=== PATIENT | female | born 1955 | race Caucasian/White ===

== ENCOUNTER 2019-10-05 18:51 | Emergency (ER) | payer MEDICARE ==
[~2019-10-05] VITALS: Ht 175.3 cm; Wt 106.8 kg
[2019-10-05 19:26] VITALS: BP 152/85
[2019-10-05] MEDS ORDERED: HYDR-4383 PO (21:54)
--- NOTE | 2019-10-05 23:32 | NUR ---
carol newby checked splint
== END 2019-10-05 23:25 | disposition home or self-care (01) ==
LOC: ER 18:51
DX: S52.122A Displaced fracture of head of left radius, initial encounter for closed fracture (principal); Z88.1 Allergy status to other antibiotic agents; Z88.8 Allergy status to other drugs, medicaments and biological substances; Z79.899 Other long term (current) drug therapy; W18.39XA Other fall on same level, initial encounter; Y93.89 Activity, other specified; Y92.89 Other specified places as the place of occurrence of the external cause; Y99.8 Other external cause status
CPT/HCPCS: 29105; 29515; 73080; 99283

== ENCOUNTER 2020-02-28 14:45 | Emergency (ER) | payer MEDICARE ==
[~2020-02-28] VITALS: Ht 172.7 cm; Wt 105.9 kg
[~2020-02-28 14:45] MED LIST: HYDR-4383 PO
[2020-02-28 15:04] VITALS: BP 170/95
--- NOTE | 2020-02-28 15:32 | NUR ---
PT C/O LOWER BACK PAIN RADIATING TO LEFT HIP X3 DAYS, LITTLE RELIEF WITH VALIUM, FLEXERIL AND TYLENOL PM TAKEN (HAS PRESCRIPTION FOR CHRONIC BACK PAIN), AMB WITH SLOW STEADY GAIT, WAITING TO BE EVALUATED BY PROVIDER
[2020-02-28] MEDS ORDERED: ketorolac trometh inj. 60 MG/2 ML VIAL IM ONE (15:55)
[2020-02-28] MEDS ORDERED: HYDROcodone/acetaminophen 5mg/325mg tablet PO ONE (15:55)
== END 2020-02-28 16:22 | disposition home or self-care (01) ==
LOC: ER 14:45
DX: M54.5 Low back pain (principal); G89.29 Other chronic pain; Z88.5 Allergy status to narcotic agent; Z88.8 Allergy status to other drugs, medicaments and biological substances; Z79.899 Other long term (current) drug therapy
CPT/HCPCS: 96372; 99283; J1885

== ENCOUNTER 2020-04-08 18:47 | Emergency (ER) | payer MEDICARE ==
[~2020-04-08] VITALS: Ht 175.3 cm; Wt 105.9 kg
[2020-04-08 18:57] VITALS: BP 96/78
[2020-04-08] MEDS ORDERED: orphenadrine citrate 60mg/2ml inj. IM ONE (19:50)
[2020-04-08] MEDS ORDERED: ketorolac tromethamine 15mg/ml inj. IM ONE (19:50)
[2020-04-08] MEDS ORDERED: ORPH100T2 PO (19:53)
[2020-04-08] MEDS ORDERED: IBUP-1984 PO (19:53)
[2020-04-08] MEDS ORDERED: traMADol 50MG tablet PO ONE (20:45)
--- NOTE | 2020-04-08 20:52 | NUR ---
Pt complained that medications administered has not helped. Consulted PA, new medication order for tramadol obtained. When administered, pt exclaimed "only one?". Pt able to get up off gurney unassisted and without apparent difficulty when discharged.
== END 2020-04-08 20:55 | disposition home or self-care (01) ==
LOC: ER 18:47
DX: M54.42 Lumbago with sciatica, left side (principal); G89.29 Other chronic pain; Z88.1 Allergy status to other antibiotic agents; Z88.5 Allergy status to narcotic agent; Z88.8 Allergy status to other drugs, medicaments and biological substances; Z79.899 Other long term (current) drug therapy
CPT/HCPCS: 96372; 99284; J1885; J2360

== ENCOUNTER 2020-04-12 18:25 | Emergency (ER) | payer MEDICARE ==
[~2020-04-12] VITALS: Ht 175.3 cm; Wt 100.0 kg
[~2020-04-12 18:25] MED LIST changes: +IBUP-1984 PO; +ORPH100T2 PO
[2020-04-12 18:27] VITALS: BP 115/78
[2020-04-12] MEDS ORDERED: orphenadrine citrate 60mg/2ml inj. IM ONE (19:30)
[2020-04-12] MEDS ORDERED: gabapentin 300mg capsule PO ONE (19:30)
[2020-04-12] MEDS ORDERED: GABA-530 PO (20:16)
--- NOTE | 2020-04-12 20:50 | NUR ---
CALLED SON SEVERAL TIME DIDN'T ANSWER AND LFT MSG ON [phone],PT BROTHER CALLED VIPUL ON [phone] STATED THAT HE WILL BOTTOM CAGER THE PT FROM [facility].
== END 2020-04-12 20:50 | disposition home or self-care (01) ==
LOC: ER 18:26
DX: M54.32 Sciatica, left side (principal); R20.0 Anesthesia of skin; Z88.0 Allergy status to penicillin; Z79.899 Other long term (current) drug therapy
CPT/HCPCS: 72131; 96372; 99284; J2360

== ENCOUNTER 2024-07-28 11:39 | Emergency (ER) | payer MEDICARE, OTHER ==
[~2024-07-28] VITALS: Ht 172.7 cm; Wt 81.8 kg
[~2024-07-28 11:39] MED LIST changes: +GABA-530 PO; -IBUP-1984 PO; -ORPH100T2 PO; +ORPH100T4 PO
[2024-07-28 11:56] VITALS: TEMP 97.8
[2024-07-28 13:00] LABS: BASOPHILS % (AUTO) 0.7 % (0-1); EOSINOPHILS # (AUTO) 0.2 X10'3 (0-0.9); EOSINOPHILS % (AUTO) 3.7 % (0-6); HEMATOCRIT 34.7 % (35.0-45.0); HEMOGLOBIN 11.5 g/dl (12.0-16.0); LYMPHOCYTES # (AUTO) 0.2 X10'3 (1.1-4.8); LYMPHOCYTES % (AUTO) 5.4 % (21-51); MEAN CORPUSCULAR HEMOGLOBIN 30.2 PG (27.0-31.0); MEAN CORPUSCULAR HGB CONC 33.2 g/dL (33.0-36.5); MEAN CORPUSCULAR VOLUME 90.9 FL (78-98); MEAN PLATELET VOLUME 6.5 FL (7.4-10.4); MONOCYTES # (AUTO) 0.3 X10'3 (0-0.9); NEUTROPHILS # (AUTO) 3.4 X10'3 (1.8-7.7); NEUTROPHILS % (AUTO) 82.2 % (42-75); PLATELET COUNT 257 X10'3 (140-440); RED BLOOD COUNT 3.81 X10'6 (4.20-5.60); RED CELL DISTRIBUTION WIDTH 14.7 % (11.5-14.5); WHITE BLOOD COUNT 4.1 X10'3 (4.5-11.0)
[2024-07-28] MEDS: normal saline 1000ml 1,000 ML IV ONE (13:06)
[2024-07-28 13:12] LABS: ANION GAP 8 (8-16); BLOOD UREA NITROGEN 15 MG/DL (7-18); BUN/CREATININE RATIO 15.3 (10.0-20.0); CHLORIDE 104 MMOL/L (99-107); CREATININE 0.98 MG/DL (0.40-0.90); GLUCOSE 128 MG/DL (70-104); SODIUM 138 MMOL/L (135-145); TOTAL CARBON DIOXIDE 26.4 MMOL/L (24-32); eCRCL 55 ML/MIN
[2024-07-28 13:13] LABS: ALANINE AMINOTRANSFERASE 17 U/L (12-78); ALBUMIN 2.9 G/DL (3.4-5.0); ALBUMIN/GLOBULIN RATIO 0.8 (1.1-1.5); ALKALINE PHOSPHATASE 134 IU/L (46-116); ASPARTATE AMINO TRANSFERASE 18 U/L (10-37); BILIRUBIN,TOTAL 0.4 MG/DL (0.1-1.0); CALCIUM 8.5 MG/DL (8.5-10.1); TOTAL PROTEIN 6.6 G/DL (6.4-8.2); eGFR 56 ML/MIN
[2024-07-28 13:17] LABS: POTASSIUM 2.9 MMOL/L (3.5-5.1)
[2024-07-28 14:49] LABS: BILIRUBIN,URINE NEGATIVE (Neg); CLARITY,URINE CLEAR (Clear); COLOR,URINE STRAW (Yellow); GLUCOSE, URINE NEGATIVE (Neg); KETONES,URINE NEGATIVE (Neg); LEUKOCYTE ESTERASE ,URINE NEGATIVE (Neg); NITRITES, URINE NEGATIVE (Neg); OCCULT BLOOD,URINE NEGATIVE (Neg); PH,URINE 6.5 (4.8-8.0); PROTEIN,URINE NEGATIVE (Neg); UROBILINOGEN,URINE 0.2 E.U/dL (0.2-1.0)
[2024-07-28 15:01] LABS: UA COLLECTION TYPE VOIDED
[2024-07-28] MEDS: potassium Cl 20mEq/100mL bag 100 ML IV ONE (16:58)
[2024-07-28] MEDS: potassium Cl 20 mEq SR tablet PO STA (16:58)
[2024-07-28] MEDS ORDERED: iohexol 300mg/ml 100ml inj. ONE (18:55)
[2024-07-28] MEDS: HYDROmorphone 1 mg/ml syringe IV ONE (19:44)
[2024-07-28] MEDS ORDERED: POTA-207 PO (20:22)
[2024-07-28 20:47] VITALS: BP 159/56; PULSE 80; RESP 16; O2SAT 95
== END 2024-07-28 20:50 | disposition still patient (30) ==
LOC: ER 11:39
DX: M54.59 Other low back pain (principal); E87.6 Hypokalemia; F17.200 Nicotine dependence, unspecified, uncomplicated; Z88.6 Allergy status to analgesic agent; Z88.8 Allergy status to other drugs, medicaments and biological substances; Z88.1 Allergy status to other antibiotic agents; Z79.899 Other long term (current) drug therapy
CPT/HCPCS: 36415; 74177; 80053; 81003; 84484; 85025; 93005; 96361; 96365; 96375; 99285; J1171; J3480; J7030; Q9967

== ENCOUNTER 2024-08-16 15:13 | Inpatient (IN) | payer MEDICARE, OTHER ==
[~2024-08-16] VITALS: Ht 172.7 cm; Wt 78.3 kg
[~2024-08-16 15:13] MED LIST changes: +POTA-207 PO
[2024-08-16] MEDS ORDERED: magnesium sulf-water 2g/50mL 50 ML IV ONE (16:35)
[2024-08-16 17:28] LABS: APTT 25 SECONDS (22-32); INR 1.1 INR; PROTHROMBIN TIME 11.4 SECONDS (9.0-12.0)
[2024-08-16 17:36] LABS: BASOPHILS % (AUTO) 0.8 % (0-1); EOSINOPHILS # (AUTO) 0.1 X10'3 (0-0.9); EOSINOPHILS % (AUTO) 1.5 % (0-6); HEMATOCRIT 37.3 % (35.0-45.0); HEMOGLOBIN 12.4 g/dl (12.0-16.0); LYMPHOCYTES # (AUTO) 0.5 X10'3 (1.1-4.8); LYMPHOCYTES % (AUTO) 9.3 % (21-51); MEAN CORPUSCULAR HEMOGLOBIN 30.1 PG (27.0-31.0); MEAN CORPUSCULAR HGB CONC 33.3 g/dL (33.0-36.5); MEAN CORPUSCULAR VOLUME 90.3 FL (78-98); MEAN PLATELET VOLUME 7.3 FL (7.4-10.4); MONOCYTES # (AUTO) 0.4 X10'3 (0-0.9); MONOCYTES % (AUTO) 7.5 % (2-12); NEUTROPHILS # (AUTO) 4.6 X10'3 (1.8-7.7); NEUTROPHILS % (AUTO) 80.9 % (42-75); PLATELET COUNT 347 X10'3 (140-440); RED BLOOD COUNT 4.13 X10'6 (4.20-5.60); RED CELL DISTRIBUTION WIDTH 14.2 % (11.5-14.5); WHITE BLOOD COUNT 5.7 X10'3 (4.5-11.0)
[2024-08-16] MEDS ORDERED: mag hydrox/Alum hydrox/simeth 30ml oral suspension PO PRN (17:50)
[2024-08-16] MEDS ORDERED: ondansetron/PF 4mg/2ml inj IV PRN (17:50)
[2024-08-16] MEDS ORDERED: magnesium sulf-water 2g/50mL 50 ML IV PRN (17:50)
[2024-08-16] MEDS ORDERED: magnesium Cl slow-release 64mg tablet PO PRN (17:50)
[2024-08-16] MEDS ORDERED: potassium Cl 20 mEq SR tablet PO PRN (17:50)
[2024-08-16] MEDS ORDERED: HYDROmorphone/PF 0.2 MG/ML SYRINGE IV PRN (17:50)
[2024-08-16] MEDS ORDERED: HYDROmorphone inj. 0.5 MG/0.5 ML DISP.SYRIN IV PRN (17:50)
[2024-08-16] MEDS ORDERED: magnesium hydroxide 30ml (MOM) UD suspension PO PRN (17:50)
[2024-08-16] MEDS ORDERED: morphine 2 MG/ML inj. syringe IV PRN (17:50)
[2024-08-16] MEDS ORDERED: acetaminophen 325mg tablet PO PRN ×2 (17:50)
[2024-08-16] MEDS ORDERED: bisacodyl 10mg suppository rectal RC PRN (17:50)
[2024-08-16] MEDS ORDERED: HYDROcodone/acetaminophen 5mg/325mg tablet PO PRN (17:50)
[2024-08-16 17:51] LABS: ALANINE AMINOTRANSFERASE 14 U/L (12-78); ALBUMIN 3.2 G/DL (3.4-5.0); ALBUMIN/GLOBULIN RATIO 0.8 (1.1-1.5); ALKALINE PHOSPHATASE 161 IU/L (46-116); ASPARTATE AMINO TRANSFERASE 40 U/L (10-37); BILIRUBIN,DIRECT 0.4 MG/DL (0-0.3); CKMB RELATIVE INDEX 0.6 RATIO (0-2.5); CREATINE KINASE 669 U/L (26-192); TOTAL PROTEIN 7.4 G/DL (6.4-8.2)
[2024-08-16 18:09] LABS: ALBUMIN 3.2 G/DL (3.4-5.0); BLOOD UREA NITROGEN 24 MG/DL (7-18); CHLORIDE 101 MMOL/L (99-107); LIPASE 15 U/L (16-77); POTASSIUM 3.6 MMOL/L (3.5-5.1)
[2024-08-16 18:33] LABS: ANION GAP 19 (8-16); BUN/CREATININE RATIO 19.4 (10.0-20.0); CALCIUM 8.8 MG/DL (8.5-10.1); CREATININE 1.24 MG/DL (0.40-0.90); ETHANOL < 10 MG/DL (<10); GLUCOSE 85 MG/DL (70-104); MAGNESIUM 1.4 MG/DL (1.5-2.4); PRO BRAIN NATRIURETIC PEPTIDE 1236 PG/ML (0-125); SODIUM 139 MMOL/L (135-145); TOTAL CARBON DIOXIDE 19.3 MMOL/L (24-32); eCRCL 44 ML/MIN; eGFR 43 ML/MIN
[2024-08-16] MEDS: magnesium sulf-water 2g/50mL 50 ML IV ONE (18:35)
[2024-08-16] MEDS: normal saline 1000ml 1,000 ML IV ONE (18:54)
[2024-08-16] MEDS: docusate sod 100mg capsule PO SCH (19:01)
[2024-08-16] MEDS: normal saline 1000ml 1,000 ML IV SCH (19:01)
[2024-08-16 20:15] LABS: MYOGLOBIN 691 ng/ml (9-82)
[2024-08-16] MEDS ORDERED: EZET10TA6 PO (21:18)
[2024-08-16] MEDS ORDERED: ALLO100T PO (21:18)
[2024-08-16] MEDS ORDERED: DIVA125T31 PO (21:18)
[2024-08-16] MEDS ORDERED: SIMV-343 PO (21:18)
[2024-08-16] MEDS ORDERED: SYN0.088T PO (21:18)
[2024-08-16] MEDS ORDERED: AMLO1CAP77 PO (21:18)
[2024-08-16] MEDS ORDERED: ATEN-169 PO (21:18)
[2024-08-16] MEDS ORDERED: QUET-1 PO (21:18)
[2024-08-16] MEDS: morphine 2 MG/ML inj. syringe IV PRN (22:22)
[2024-08-16] MEDS: heparin, porcine 5000 units/ml vial SQ SCH (22:26)
[2024-08-16 22:40] VITALS: BP 135/62; PULSE 85; RESP 18; TEMP 96.9; O2SAT 98
[2024-08-17] VITALS (7 sets, daily range): BP systolic 95–126; BP diastolic 50–74; PULSE 90–114; RESP 14–18; TEMP 96.7–98.4; O2SAT 94–98
[2024-08-17] MEDS: gabapentin 100mg capsule PO SCH (00:14)
[2024-08-17] MEDS: magnesium sulf-water 2g/50mL 50 ML IV ONE (00:16)
[2024-08-17] MEDS: ondansetron/PF 4mg/2ml inj IV PRN (00:49)
[2024-08-17] MEDS: HYDROmorphone 1 mg/ml syringe ONE (00:50)
[2024-08-17] MEDS: ALPRAZolam 0.25mg tablet PO ONE (01:13)
[2024-08-17 04:45] LABS: BASOPHILS % (AUTO) 1.1 % (0-1); EOSINOPHILS # (AUTO) 0.3 X10'3 (0-0.9); EOSINOPHILS % (AUTO) 5.6 % (0-6); HEMATOCRIT 34.7 % (35.0-45.0); HEMOGLOBIN 11.7 g/dl (12.0-16.0); LYMPHOCYTES # (AUTO) 0.5 X10'3 (1.1-4.8); LYMPHOCYTES % (AUTO) 11.4 % (21-51); MEAN CORPUSCULAR HEMOGLOBIN 30.3 PG (27.0-31.0); MEAN CORPUSCULAR HGB CONC 33.6 g/dL (33.0-36.5); MEAN CORPUSCULAR VOLUME 90.3 FL (78-98); MONOCYTES # (AUTO) 0.4 X10'3 (0-0.9); MONOCYTES % (AUTO) 8.2 % (2-12); NEUTROPHILS # (AUTO) 3.4 X10'3 (1.8-7.7); NEUTROPHILS % (AUTO) 73.7 % (42-75); PLATELET COUNT 301 X10'3 (140-440); RED BLOOD COUNT 3.85 X10'6 (4.20-5.60); RED CELL DISTRIBUTION WIDTH 14.4 % (11.5-14.5); WHITE BLOOD COUNT 4.6 X10'3 (4.5-11.0)
[2024-08-17 05:03] LABS: ALANINE AMINOTRANSFERASE 26 U/L (12-78); ALBUMIN/GLOBULIN RATIO 0.7 (1.1-1.5); ALKALINE PHOSPHATASE 150 IU/L (46-116); ANION GAP 19 (8-16); ASPARTATE AMINO TRANSFERASE 36 U/L (10-37); BILIRUBIN,TOTAL 0.8 MG/DL (0.1-1.0); BLOOD UREA NITROGEN 24 MG/DL (7-18); BUN/CREATININE RATIO 21.4 (10.0-20.0); CALCIUM 8.7 MG/DL (8.5-10.1); CHLORIDE 101 MMOL/L (99-107); CREATININE 1.12 MG/DL (0.40-0.90); GLUCOSE 81 MG/DL (70-104); MAGNESIUM 2.6 MG/DL (1.5-2.4); POTASSIUM 3.3 MMOL/L (3.5-5.1); SODIUM 143 MMOL/L (135-145); TOTAL CARBON DIOXIDE 23.2 MMOL/L (24-32); TOTAL PROTEIN 7.2 G/DL (6.4-8.2); eCRCL 49 ML/MIN; eGFR 48 ML/MIN
[2024-08-17] MEDS: levoTHYROXINE 88mcg tablet PO SCH (07:49)
[2024-08-17] MEDS: divalproex sod 125mg tablet.DR PO SCH (08:15)
[2024-08-17] MEDS: ezetimibe 10mg tablet PO SCH (08:16)
[2024-08-17] MEDS: potassium Cl 20 mEq SR tablet PO PRN (08:28)
[2024-08-17] MEDS: nitroGLYCERIN 0.4mg SUBLingual tab SL PRN (08:53)
[2024-08-17] MEDS: aspirin 81mg, enteric-coated 1 TAB TABLET.DR PO SCH (09:43)
[2024-08-17] MEDS: atenolol 25mg tablet PO SCH (09:46)
[2024-08-17] MEDS: HYDROcodone/acetaminophen 10/325mg tab PO PRN (13:24)
[2024-08-17] MEDS: simvastatin 20mg tablet PO SCH (21:10)
[2024-08-18] VITALS (10 sets, daily range): BP systolic 113–151; BP diastolic 41–77; PULSE 78–98; RESP 16–18; TEMP 97.7–98.7; O2SAT 91–97
[2024-08-18 06:08] LABS: BASOPHILS % (AUTO) 0.9 % (0-1); EOSINOPHILS # (AUTO) 0.2 X10'3 (0-0.9); EOSINOPHILS % (AUTO) 7.3 % (0-6); HEMATOCRIT 34.6 % (35.0-45.0); HEMOGLOBIN 11.4 g/dl (12.0-16.0); LYMPHOCYTES # (AUTO) 0.5 X10'3 (1.1-4.8); LYMPHOCYTES % (AUTO) 15.3 % (21-51); MEAN CORPUSCULAR HEMOGLOBIN 29.9 PG (27.0-31.0); MEAN CORPUSCULAR VOLUME 90.5 FL (78-98); MEAN PLATELET VOLUME 7.2 FL (7.4-10.4); MONOCYTES # (AUTO) 0.4 X10'3 (0-0.9); MONOCYTES % (AUTO) 12.2 % (2-12); NEUTROPHILS # (AUTO) 2.1 X10'3 (1.8-7.7); NEUTROPHILS % (AUTO) 64.3 % (42-75); PLATELET COUNT 250 X10'3 (140-440); RED BLOOD COUNT 3.82 X10'6 (4.20-5.60); RED CELL DISTRIBUTION WIDTH 14.5 % (11.5-14.5); WHITE BLOOD COUNT 3.2 X10'3 (4.5-11.0)
[2024-08-18 06:42] LABS: ALANINE AMINOTRANSFERASE 27 U/L (12-78); ALBUMIN 2.4 G/DL (3.4-5.0); ALBUMIN/GLOBULIN RATIO 0.6 (1.1-1.5); ALKALINE PHOSPHATASE 147 IU/L (46-116); ANION GAP 7 (8-16); ASPARTATE AMINO TRANSFERASE 25 U/L (10-37); BILIRUBIN,TOTAL 0.4 MG/DL (0.1-1.0); BLOOD UREA NITROGEN 17 MG/DL (7-18); BUN/CREATININE RATIO 20.7 (10.0-20.0); CALCIUM 8.6 MG/DL (8.5-10.1); CHLORIDE 107 MMOL/L (99-107); CREATININE 0.82 MG/DL (0.40-0.90); GLUCOSE 105 MG/DL (70-104); POTASSIUM 4.4 MMOL/L (3.5-5.1); SODIUM 141 MMOL/L (135-145); TOTAL CARBON DIOXIDE 26.7 MMOL/L (24-32); TOTAL PROTEIN 6.2 G/DL (6.4-8.2); eCRCL 66 ML/MIN; eGFR 69 ML/MIN
[2024-08-18] MEDS: amLODIPine 2.5mg tablet PO SCH (07:19)
[2024-08-18] MEDS: lisinopril 10 MG tablet PO SCH (07:20)
[2024-08-18] MEDS: allopurinol 100mg tablet PO SCH (07:21)
[2024-08-18] MEDS: famotidine 20mg tablet PO PRN (15:12)
[2024-08-18] MEDS: metoclopramide 5 mg/ml inj IV PRN (18:08)
[2024-08-18 21:02] LABS: BILIRUBIN,URINE SMALL (Neg); CLARITY,URINE SLIGHTLY CLOUDY (Clear); COLOR,URINE YELLOW (Yellow); GLUCOSE, URINE NEGATIVE (Neg); KETONES,URINE TRACE mg/dl (Neg); LEUKOCYTE ESTERASE ,URINE TRACE (Neg); NITRITES, URINE NEGATIVE (Neg); OCCULT BLOOD,URINE NEGATIVE (Neg); PROTEIN,URINE TRACE mg/dl (Neg)
[2024-08-18 21:07] LABS: UA COLLECTION TYPE NON-SPECIFIED
[2024-08-18 21:08] LABS: BACTERIA,URINE 1+ /HPF (Neg); RBC,URINE NONE SEEN /HPF (0-2); SQUAMOUS EPITHELIAL CELL,UR FEW /LPF (FEW)
[2024-08-18 21:09] LABS: MUCUS STRANDS FEW /LPF (Neg)
[2024-08-18 21:25] LABS: URINE AMPHETAMINE SCREEN POSITIVE (Neg); URINE BARBITUATE SCREEN NEGATIVE (Neg); URINE BENZODIAZEPINES SCREEN POSITIVE (Neg); URINE CANNABINOID SCREEN NEGATIVE (Neg); URINE COCAINE SCREEN NEGATIVE (Neg); URINE METHADONE SCREEN NEGATIVE (Neg); URINE OPIATE SCREEN POSITIVE (Neg); URINE PHENCYCLIDINE SCREEN NEGATIVE (Neg)
[2024-08-19 06:40] LABS: BASOPHILS % (AUTO) 1.4 % (0-1); EOSINOPHILS # (AUTO) 0.2 X10'3 (0-0.9); EOSINOPHILS % (AUTO) 9.3 % (0-6); HEMATOCRIT 31.4 % (35.0-45.0); HEMOGLOBIN 10.4 g/dl (12.0-16.0); LYMPHOCYTES # (AUTO) 0.5 X10'3 (1.1-4.8); LYMPHOCYTES % (AUTO) 20.7 % (21-51); MEAN CORPUSCULAR HEMOGLOBIN 30.1 PG (27.0-31.0); MEAN CORPUSCULAR HGB CONC 33.2 g/dL (33.0-36.5); MEAN CORPUSCULAR VOLUME 90.8 FL (78-98); MEAN PLATELET VOLUME 7.5 FL (7.4-10.4); MONOCYTES # (AUTO) 0.3 X10'3 (0-0.9); MONOCYTES % (AUTO) 12.2 % (2-12); NEUTROPHILS # (AUTO) 1.4 X10'3 (1.8-7.7); NEUTROPHILS % (AUTO) 56.4 % (42-75); PLATELET COUNT 192 X10'3 (140-440); RED BLOOD COUNT 3.45 X10'6 (4.20-5.60); RED CELL DISTRIBUTION WIDTH 14.7 % (11.5-14.5); WHITE BLOOD COUNT 2.5 X10'3 (4.5-11.0)
[2024-08-19 06:52] LABS: ALANINE AMINOTRANSFERASE 24 U/L (12-78); ALBUMIN 2.3 G/DL (3.4-5.0); ALBUMIN/GLOBULIN RATIO 0.6 (1.1-1.5); ALKALINE PHOSPHATASE 123 IU/L (46-116); ANION GAP 6 (8-16); ASPARTATE AMINO TRANSFERASE 23 U/L (10-37); BILIRUBIN,TOTAL 0.2 MG/DL (0.1-1.0); BLOOD UREA NITROGEN 11 MG/DL (7-18); BUN/CREATININE RATIO 13.9 (10.0-20.0); CHLORIDE 108 MMOL/L (99-107); CREATININE 0.79 MG/DL (0.40-0.90); FERRITIN 257 NG/ML (8-252); GLUCOSE 115 MG/DL (70-104); MAGNESIUM 1.7 MG/DL (1.5-2.4); POTASSIUM 4.5 MMOL/L (3.5-5.1); SODIUM 139 MMOL/L (135-145); THYROID STIMULATING HORMONE 9.24 ulU/ml (0.34-4.50); TOTAL CARBON DIOXIDE 25.1 MMOL/L (24-32); TOTAL PROTEIN 5.9 G/DL (6.4-8.2); eCRCL 69 ML/MIN; eGFR 72 ML/MIN
[2024-08-19 06:58] LABS: % IRON SATURATION 24 % (11-46); IRON 42 UG/DL (49-151); TOTAL IRON BINDING CAPACITY 174 UG/DL (259-388)
[2024-08-19 08:38] LABS: BURR CELLS FEW; PLATELET ESTIMATE NORMAL; TOTAL CELLS COUNTED 100
[2024-08-19 10:00] VITALS: BP 140/72; PULSE 94; RESP 15; TEMP 97.8; O2SAT 90
[2024-08-19] MEDS ORDERED: FURO-150 PO (11:10)
[2024-08-19] MEDS ORDERED: HYDR-3972 PO (11:16)
[2024-08-19] MEDS ORDERED: SULF1TAB49 PO (18:29)
== END 2024-08-19 12:40 | disposition home health service (06) | DRG 535 ==
LOC: ER 15:13 → ED HOLD 17:51 → ORTHO 4S 22:38
PROVIDERS: ADMIT Internal Medicine; ATTEND Internal Medicine
DX: S32.511A Fracture of superior rim of right pubis, initial encounter for closed fracture (principal); N17.0 Acute kidney failure with tubular necrosis; S32.19XA Other fracture of sacrum, initial encounter for closed fracture; E87.29 Other acidosis; N39.0 Urinary tract infection, site not specified; I50.9 Heart failure, unspecified; F32.A Depression, unspecified; F17.200 Nicotine dependence, unspecified, uncomplicated; D64.9 Anemia, unspecified; I11.0 Hypertensive heart disease with heart failure; E83.42 Hypomagnesemia; R94.31 Abnormal electrocardiogram [ECG] [EKG]; E86.0 Dehydration; J44.89 Other specified chronic obstructive pulmonary disease; W18.39XA Other fall on same level, initial encounter; Y93.89 Activity, other specified; Z88.1 Allergy status to other antibiotic agents; Z88.8 Allergy status to other drugs, medicaments and biological substances; Z79.899 Other long term (current) drug therapy; Z88.5 Allergy status to narcotic agent; Z95.1 Presence of aortocoronary bypass graft; Y92.89 Other specified places as the place of occurrence of the external cause; Y99.8 Other external cause status; S32.592A Other specified fracture of left pubis, initial encounter for closed fracture
CPT/HCPCS: 36415; 71045; 71250; 72170; 74176; 80048; 80053; 80076; 80305; 80320; 81001; 82550; 82553; 82728; 83540; 83550; 83690; 83735; 83874; 83880; 84443; 84484; 85007; 85025; 85610; 85730; 87081; 87088; 93005; 97110; 97116; 97161; 97530; 97535; 99285; A4615; A6250; A6258; G0378; J1171; J1644; J2270; J2405; J2765; J7030